=== PATIENT | male | born 1950 | race Caucasian/White ===

== ENCOUNTER 2021-09-09 16:23 | Emergency (ER) | payer MEDICARE, BC ==
[2021-09-09 17:00] VITALS: BP 142/105; PULSE 93
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
== END 2021-09-09 17:20 | disposition home or self-care (01) ==
LOC: MW.ED 16:23
DX: S40.022A Contusion of left upper arm, initial encounter (principal); I48.91 Unspecified atrial fibrillation; E11.9 Type 2 diabetes mellitus without complications; Z88.8 Allergy status to other drugs, medicaments and biological substances; Z79.01 Long term (current) use of anticoagulants; W33.01XA Accidental discharge of shotgun, initial encounter
CPT/HCPCS: 99283